=== PATIENT | female | born 1985 | race Caucasian/White ===

== ENCOUNTER 2022-03-26 13:55 | Outpatient (CLI) | payer OTHER, SELFPAY ==
[2022-03-26 21:39] LABS: Chloride* 103 mmol/L (96-114); Potassium* 4.1 mmol/L (3.6-5.1); Sodium* 138 mmol/L (135-149)
[2022-03-26 21:42] LABS: Blood Urea Nitrogen* 12 mg/dL (5-24); Carbon Dioxide* 25 mmol/L (20-32); Cholesterol* 141 mg/dL (90-199); Creatinine* 0.6 mg/dL (0.5-1.5); Estimated Glomerular Filt Rate 119 ml/min; Glucose* 113 mg/dL (60-115)
[2022-03-26 21:43] LABS: Calcium* 8.6 mg/dL (8.4-10.6); HDL Cholesterol* 45 mg/dL (>=50); LDL Cholesterol Calculated 70 mg/dL (<100); Triglycerides* 128 mg/dL (40-149)
== END 2022-03-26 13:56 | disposition home or self-care (01) ==
PROVIDERS: PCP Physician Assistant Medical; Visit Provider Emergency Medicine
DX: E66.9 Obesity, unspecified (principal); F41.9 Anxiety disorder, unspecified; Z68.38 Body mass index [BMI] 38.0-38.9, adult; Z13.6 Encounter for screening for cardiovascular disorders
CPT/HCPCS: 80048; 80061; 84443

== ENCOUNTER 2024-02-16 14:54 | Outpatient (CLI) | payer OTHER, SELFPAY | END 2024-02-16 14:55 | disposition home or self-care (01) | LOC: NFLDREF 02-21 16:16 | PROVIDERS: PCP Physician Assistant Medical; Referring Provider Physician Assistant Medical; Visit Provider Physician Assistant Medical | DX: R79.89 Other specified abnormal findings of blood chemistry (principal); R79.0 Abnormal level of blood mineral | CPT/HCPCS: 82306; 82607; 82728; 84443 ==

== ENCOUNTER 2024-03-22 11:09 | Outpatient (CLI) | payer OTHER, SELFPAY ==
--- OUTSIDE RECORDS SUMMARY | 2024-03-22 11:11 | XMS_ITS | Encounter Summary ---
Author Organization [place] Address [address] [place] [address] Care Team Providers Care Veneer Press Operator Name Role Phone Ivory Varela MD Primary Care Provide r Ivory Varela MD Unavailable Ivory Varela MD Unavailable [phone] Kisha Gustafson PA-C Primary Care Provi nelly Kisha Gustafson PA-C Unavailable [phone] Hanna Stone Ra, APRN IN HOME SALES CONSULTANT Unavailable + [phone] Brock Segovia DPM Unavailable [phone] Hanna Stone Ra, APRN IN HOME SALES CONSULTANT Primary Care Provid er Hanna Stone Ra, APRN IN HOME SALES CONSULTANT Unavailable + [phone] Reason for Visit * Reason Onset Date Comments Patient Request 12/22/2017 Encounter Details Date Type Department Care Team (Late st Contact Info) Description 12/22/2017 Telephone [facility] [address] [place] [address] Eddie Larsen MD [facility] [address] [place], [place] [id number] Patient Request Social History Tobacco Use Types Packs/Day Years Used Date Smoking Tobacco: Former Cigarettes Q uit: 05/26/2010 Smokeless Tobacco: Never Alcohol Use Standard Drinks/Week Comments Yes 0 (1 standard drink = 0.6 oz pur e alcohol) occassionally Comments No Sex and Gender Information Value Date Recorded Sex Assigned at Not on file Legal Sex Female 5:08 AM MILK INSPECTOR Gender Identity Not on file Sexual Orientation Not on file documented as of this encounter Patient Instructions * Patient Instructions* Page Mireles RN - 12/22/2017 3:39 PM CDT Patient Instructions Pre-Operative: -Surgery scheduled at [facility] for L4-5 Microdiscectomy-Surgical risks: blood clotsin the leg or lung, problems urinating, nerve damage, drainage from the incision, infection,stiffness - Pre-operative physical with primary care physician within 30 days of surgical date. - Likely same day procedure with discharge home day of surgery, may stay for 23 hour observation hospitalization for monitoring. -Shower procedure: please shower with antimicrobial soap the night before surgery and morning of surgery. Please refer to showering instruction sheet in folder. -Stop all solid foods 8 hours before surgery. -Keep drinking clear liquids until 4 hours before surgery. Clear liquids include water, clear juice, black coffee, or clear tea without milk, Gatorade, clear soda. - Discontinue Aspirin, NSAIDs (Advil/Ibuprofen, Naproxen,Nuprin,Relafen/Nabumetone, Diclofenac,Meloxicam, Aleve, Celebrex) x 7 days prior to surgical date. -- May try tylenol for pain 1000 mg three times per day for pain Post-Operative: -you may resume taking NSAIDs 7 days post op - Post operative incisional pain x 1-2 weeks which will require pain medications and muscle relaxants. You will receive medication upon discharge. -Do NOT drive while taking narcotic pain medication. -Do not drink alcohol while using any pain medication -Post operative incision care- Watch for signs of infection: redness, swelling, warmth, drainage, and fever of 101 degrees or higher. Notify clinic [phone]. -No submerging incision in water such as pools, hot tubs,baths for at least 8 weeks or until incision is healed. Showers are fine. - Post operative activity limitations: 6-8 weeks, no lifting > 10 pounds, no bending, twisting, or overhead reaching. - Post op follow up appointments:6 week post op follow up visit with Nurse practitioner.Please callto schedule follow up appointment at [phone]. -If you are currently employed, you will need to be off work for 2-4 weeks for post op recovery andhealing. documented in this encounter Miscellaneous Notes * Telephone Encounter - Page Mireles RN - 12/22/2017 3:22 PM CDT Returned call to patient and went over her pre-op education below. Faxed information to patient @ [email or web address] Pre-operative Education Education included but not limited to: - Pre-operative physical with primary care physician within 30 days of surgical date. - Pre-operative clearance (cardiology, hematology, etc). - Discontinue Aspirin, NSAIDs, Diclofenac x 7 days prior to surgical date. -May try tylenol for pain 1000 mg three times per day for pain -you may resume taking NSAIDs 7 days post op after Laminectomy, microdiscectomy -Patient is not a smoker -Forms to be completed -Surgical risks: blood clots in the leg or lung, problems urinating, nerve damage, drainage from the incision, infection,stiffness -Preparation timeline - When to start NPO -Special bathing procedure.Patient received Hibiclens and showering instruction sheet. - Managing pain - Likely same day procedure with discharge home day of surgery, may stay for 23 hour observation hospitalization for monitoring - Post operative incisional pain x 1-2 weeks which will require pain medications and muscle relaxants. -Do NOT drive or drink alcohol while taking narcotic pain medication. -Post operative incision care-Keep your incision clean and dry at all times. OK to remove dressing on postop day 2. OK to shower on postop day 3 and allow water to run over incision, pat dry after shower. No bathing, swimming or submerging in water. Call immediately or come to ED if any drainage occurs, or you develop new pain. Watch for signs of infection: redness, swelling, warmth, drainage, and fever of 101 degrees or higher. Notify clinic. - Post operative activity limitations: 6-8 weeks, no lifting > 10 pounds, no bending, twisting, or overhead reaching. - Post op follow up appointments: 6 weeks and 3 months with Nurse Practitioner. Please call to schedule follow up appointment at [phone]. - Microdiscectomy Education book was also given to the patient for further review. Patient verbalized understanding of above instructions. All questions were answered to the best of my ability and the patient's satisfaction. Patient advised to call with any additional questions or concerns. Page Mireles RN * Telephone Encounter - Rachel Barnes - 12/22/2017 1:42 PM CDT REASON FOR CALL: Pt left vm stating she has questions about her upcoming surgery and would like a call back. Did not state what the questions were. Detailed message can be left: YES documented in this encounter Plan of Treatment Not on file documented as of this encounter Visit Diagnoses Not on filedocumented in this encounter Care Teams Veneer Press Operator Relationship Specialty Start Date End Date Ivory Varela MD PCP - General Pediatrics 11/02/09 05/24/19 Ivory Varela MD [address] [place] [address] PCP - Assigned PCP 07/08/16 07/28/18 Kisha Gustafson PA-C [address] [place] [address] PCP - General Physician Beach Patrol Lieutenant 05/25/19 09/20/20 Hanna Stone Ra, CONVENTION PLANNER IN HOME SALES CONSULTANT [address] [place] [address] PCP - General Family Practice 09/21/20 Ivory Varela MD [address] [place] [address] Assigned PCP 07/08/16 05/29/19 Kisha Gustafson PA-C [address] [place] [address] Assigned PCP 05/30/19 12/04/19 Hanna Stone Ra, APRN IN HOME SALES CONSULTANT [address] [place] [address] Assigned PCP 12/05/19 05/10/22 Brock Segovia DPM [address] [facility] [address] [place] [address] Assigned Musculoskeletal Provider 03/17/20 09/02/20 Hanna Stone Ra, APRN IN HOME SALES CONSULTANT [address] [place] [address] Assigned PCP 07/20/22 11/15/22 documented as of this encounter
--- OUTSIDE RECORDS SUMMARY | 2024-03-22 11:11 | XMS_ITS | Clinical Summary ---
Author Organization [place] Address [address] [place] [address] Care Team Providers Care Carbide Tool Die Maker Name Role Phone BerthaHanna cornejo Ra CHRISTOPHER BOX TOE STITCHER Primary Care Provid er Allergies Active Allergy Reactions Criticality Noted Date Comments Seasonal Allergies 04/21/2013 Medications ibuprofen (ADVIL/MOTRIN) 800 MG tabletIndicatio ns:Hip pain, left Take 1 tablet (800 mg) by mouth every 8 hours as needed for moderate pain 90 tablet 1 09/05/2017 Active escitalopram (LEXAPRO) 20 MG tabletIndicatio ns:Anxiety Take 1 tablet (20 mg) by mouth daily 30 tablet 2 11/02/2019 Active albuterol (PROAIR HFA/PROVENTIL HFA/VENTOLIN HFA) 108 (90 Base) MCG/ACT inhalerIndicati ons:Exercise-in duced asthma Inhale 2 puffs into the lungs every 6 hours 1 Inhaler 11/02/2019 Active oxyCODONE (ROXICODONE) 5 MG tablet Take 1 tablet (5 mg) by mouth every 6 hours as needed for severe pain 12 tablet 09/03/2023 Active Active Problems Problem Noted Date Diagnosed Date Mechanical low back pain 09/12/2017 Class 1 obesity due to exces s calories without serious comorbidity with body mass index (BMI) of 30.0 to 30.9 in adult 07/10/2017 Family history of diabetes mellitus 11/21/2015 S/P 05/03/2013 Anxiety 11/13/2011 CARDIOVASCULAR SCREENING; LDL GOAL LESS THAN 160 03/25/2010 Abnormal Pap smear of cervix 11/02/2009 Overview (11/02/2009): + HPV, had coloposcopy. Resolved Problems Problem Noted Date Diagnosed Date Resolved Date Cervical pain 04/25/2011 06/13/2011 Lumbar radiculopathy 04/25/2011 012 Immunizations Name Administration Dates Next Due COVID-19 Monovalent 18+ (Moderna) 09/07/2020, Influenza (IIV3) PF 02/25/2013,04/10/2011 Influenza Vaccine >6 months,quad, PF 04/2020,03/28/2019,02/28/2018, 016 Influenza, seasonal, injectable, PF 03/11/2017,0 02/15/2015 TDAP Vaccine (Adacel) 03/09/2013,12/21/2010 Family History Medical History Relation Comments No Known Problems Daughter 1 No Known Problems Daughter 2 Alcohol/Drug Father Diabetes Father Blood Disease Maternal Grandfather hemachromat osis dec 60's Depression Maternal Grandmother Lipids Maternal Grandmother Psychotic Disorder Mother anxiety C.A.D. Paternal Grandfather dec [place] latoya y 60's No Known Problems Paternal Grandmother No Known Problems Sister Relation Status Comments Daughter 1 Alive Daughter 2 Alive Father Alive Maternal Grandfather Maternal Grandmother Alive Mother Alive Paternal Grandfather Paternal Grandmother Alive Sister Alive Social History Tobacco Use Types Packs/Day Years Used Date Smoking Tobacco: Former Cigarettes Q uit: 05/26/2010 Smokeless Tobacco: Never Tobacco Cessation:Counseling Given: No Alcohol Use Standard Drinks/Week Comments Yes 0 (1 standard drink = 0.6 oz pur e alcohol) occassionally PHQ-2 Answer Date Recorded PHQ-2 Score 0 07/05/2019 Adolescent Education Answer Date Record ed Getting School Help Needed Not on file 03/12 Comments No Sex and Gender Information Value Date Recorded Sex Assigned at Not on file Legal Sex Female 5:08 AM INTERNATIONAL STUDENT COUNSELOR Gender Identity Not on file Sexual Orientation Not on file Last Filed Vital Signs Vital Sign Reading Time Taken Comments Blood Pressure 149/96 09/02/2023 8:30 PM CDT Pulse 93 09/02/2023 8:30 PM CDT Temperature 36.7 ??C (98.1 ??F) 09/02/2023 8:30 PM CD T Respiratory Rate 19 09/02/2023 8:30 PM CDT Oxygen Saturation 99% 09/02/2023 8:30 PM CDT Inhaled Oxygen Concentration - - Weight 90.9 kg (200 lb 8 oz) 05/25/2019 9:28 AM INTERNATIONAL STUDENT COUNSELOR Height 165.1 cm (5' 5) 05/25/2019 9:28 AM INTERNATIONAL STUDENT COUNSELOR Body Mass Index 33.36 05/25/2019 9:28 AM INTERNATIONAL STUDENT COUNSELOR Plan of Treatment Health Maintenance Due Date Last Done Comments ANNUAL REVIEW OF HM ORDERS 1985 URINE DRUG SCREEN 1985 HEPATITIS C SCREENING 2003 HEPATITIS B IMMUNIZATION (1 of 3 - 19+ 3-dose series) 2004 JACK ASSESSMENT 05/03/2020 11/02/2019, 07/24, 07/05/2019, Additional history exists GLUCOSE 07/10/2020 07/10/2017, 11/02/2009 HPV TEST 05/26/2021 02/13/2016 PAP 05/26/2021 05/26/2016, 01/25, 02/13/2016, Additional history exists ADVANCE CARE PLANNING 01/08/2023 01/08/2018 DTAP/TDAP/TD IMMUNIZATION (3 - Td or Tdap) 03/09/2023 03/09/2013, 12/21/2010 PHQ-2 (once per calendar year) 2023 08/04/2019, 07/05/2019, 07/05/2019, Additional history exists COVID-19 Vaccine ( season) 2024 04/20/2021, 09/07/2020, 08/10/2020 INFLUENZA VACCINE (#1) 2024 , 02/05/2020, 03/28/2019, Additional history exists YEARLY PREVENTIVE VISIT 04/16/2024 04/16/20 23, 10/19/2021, 03/29/2020, Additional history exists RSV VACCINE (1 - 1-dose 75+ series) 2060 HIV SCREENING Completed 10/20/2012 HPV IMMUNIZATION Aged Out No longer e ligible based on patient's age to complete this topic MENINGITIS IMMUNIZATION Aged Out No l onger eligible based on patient's age to complete this topic Pneumococcal Vaccine: Pediatrics (0 to 5 Years) and At-Risk Patients (6 to 64 Years) Aged Out No longer eligible based on patient's age to complete this topic RSV MONOCLONAL ANTIBODY Aged Out No l onger eligible based on patient's age to complete this topic Procedures Procedure Name Priority Date/Time Associated Diagnosis Comments COMPREHENSIVE METABOLIC PANEL Routine 07/10/2017 10:14 AM INTERNATIONAL STUDENT COUNSELOR CARDIOVASCULAR SCREENING; LDL GOAL LESS THAN 160 PAP SMEAR - [facility] PATIENT REPORTED Routine 05/26/2016 ABSTRACT HPV ([facility] EXTERNAL RESULT) Routine 02/13/2016 HIV 1 AND 2 ANTIBODY ([facility]) Routine 10/20/2012 from Last 3 Months or Most Recently Relevant to Health Maintenance Results * Comprehensive metabolic panel (07/10/2017 10:14 AM INTERNATIONAL STUDENT COUNSELOR) Sodium 138 133 - 144 mmol/L 07/10/2017 2:07 PM [facility] Potassium 4.1 3.4 - 5.3 mmol/L 07/10/2017 2:07 PM [facility] Chloride 106 94 - 109 mmol/L 07/10/2017 2:07 PM [facility] Carbon Dioxide 27 20 - 32 mmol/L 07/10/2017 2:07 PM [facility] Anion Gap 5 3 - 14 mmol/L 07/10/2017 2:07 PM [facility] Glucose 87 70 - 99 mg/dL 07/10/2017 2:07 PM [facility] Comment:Fasting specimen Urea Nitrogen 16 7 - 30 mg/dL 07/10/2017 2:07 PM [facility] Creatinine 0.58 0.52 - 1.04 mg/dL 07/10/2017 2:07 PM [facility] GFR Estimate >90 >60 mL/min/1.7 m2 07/10/2017 2:07 PM [facility] Comment:Non GFR Calc GFR Estimate If Black >90 >60 mL/min/1.7 m2 07/10/2017 2:07 PM [facility] Comment: GFR Calc Calcium 8.7 8.5 - 10.1 mg/dL 07/10/2017 2:07 PM [facility] Bilirubin Total 0.3 0.2 - 1.3 mg/dL 07/10/2017 2:07 PM [facility] Albumin 3.7 3.4 - 5.0 g/dL 07/10/2017 2:07 PM [facility] Protein Total 7.3 6.8 - 8.8 g/dL 07/10/2017 2:07 PM [facility] Alkaline Phosphatase 56 40 - 150 U/L 07/10/2017 2:07 PM [facility] ALT 17 0 - 50 U/L 07/10/2017 2:07 PM [facility] AST 9 0 - 45 U/L 07/10/2017 2:07 PM [facility] Blood specimen (specimen) 07/10/2017 10:14 AM INTERNATIONAL STUDENT COUNSELOR 07/10/2017 10:15 AM INTERNATIONAL STUDENT COUNSELOR Ivory Varela MD LAB - BLOOD ORDERABLE S Final Result [facility] [address] [place] [address] * PAP Smear - HIM Patient Reported (05/26/2016) PAP Smear - HIM Patient Reported Negative EXTERNAL LAB 05/26/2016 Narrative EXTERNAL LAB - 05/26/2016 ??Pt had pap done x1 year ago at [facility] and was negative. (2017) us Patient Reported LABORATORY Final Result EXTERNAL LAB External Lab * ABSTRACT HPV-NO CHARGE (02/13/2016) HPV Abstract See Scanned Document [facility] 02/13/2016 Narrative [facility] - 02/13/2016 PAP SMEAR APOLINAR MOREIRA Lab Result us Provider Outside LAB - HIM EXTERNAL RESULT Final Result [facility] [address] [facility] [place] [address], [facility] [phone] * HIV 1 and 2 Antibody (10/20/2012) HIV-1 & HIV-2 Antibody HIV 1&2 Antibody negative Blood specimen (specimen) us Patient Reported LAB - BLOOD ORDERABLES Final Re sult from Last 3 Months or Most Recently Relevant to Health Maintenance Insurance [employer] Advance Directives For more information, please contact: [phone] Documents on File Type Date Recorded Patient Mental Health Unit Lead Psychologist Expl anation Advance Directives and Living Will 12/30/2017 10:38 AM Health Care Directiv e 12/08/2017 Healthcare Agents on File Name Relationship Healthcare Agent [facility] Communication Jose Manuel Deo Spouse Health Care Agent Paige Cole Sister First Alternate Health Care Agent Care Teams Carbide Tool Die Maker Relationship Specialty Start Date End Date Hanna Stone Ra, COMMERCIAL FINANCE MANAGER BOX TOE STITCHER [address] [address] PCP - General Family Practice 09/21/20
--- OUTSIDE RECORDS SUMMARY | 2024-03-22 11:11 | XMS_ITS | Encounter Summary ---
Author Organization [place] Address [address] [place] [address] Care Team Providers Care Yardage Caller Name Role Phone Kisha Gustafson PA-C Primary Care Provi nelly Hanna Stone Ra, APRN THERMIT WELDING MACHINE OPERATOR Unavailable + [phone] Brock Segovia DPM Unavailable [phone] Hanna Stone Ra, APRN THERMIT WELDING MACHINE OPERATOR Primary Care Provid er Hanna Stone Ra, APRN THERMIT WELDING MACHINE OPERATOR Unavailable + [phone] Encounter Details Date Type Department Care Team (Late st Contact Info) Description 02/22/2020 [facility] Medical Advice [address] [id number] Chary Perez Social History Tobacco Use Types Packs/Day Years Used Date Smoking Tobacco: Former Cigarettes Q uit: 05/26/2010 Smokeless Tobacco: Never Alcohol Use Standard Drinks/Week Comments Yes 0 (1 standard drink = 0.6 oz pur e alcohol) occassionally PHQ-2 Answer Date Recorded PHQ-2 Score 0 07/05/2019 Comments No Sex and Gender Information Value Date Recorded Sex Assigned at Not on file Legal Sex Female 5:08 AM VACUUM CLEANER REPAIR PERSON Gender Identity Not on file Sexual Orientation Not on file documented as of this encounter Plan of Treatment Not on file documented as of this encounter Visit Diagnoses Not on filedocumented in this encounter Additional Health Concerns Assessment Noted Time PHQ-9 Depression Total Score: 5 08/05/19 20 7:04 AM CDT documented as of this encounter Care Teams Yardage Caller Relationship Specialty Start Date End Date Kisha Gustafson PA-C PCP - General Physician Progress Developer 05/25/19 09/20/20 Hanna Stone Ra, APRN THERMIT WELDING MACHINE OPERATOR [address] [address] PCP - General Family Practice 09/21/20 Hanna Stone Ra, APRN THERMIT WELDING MACHINE OPERATOR [address] [address] Assigned PCP 12/05/19 05/10/22 Brock Segovia DPM [address] [facility] [address] [place] [address] Assigned Musculoskeletal Provider 03/17/20 09/02/20 Hanna Stone Ra, APRN CNP [address] [address] Assigned PCP 07/20/22 11/15/22 documented as of this encounter
--- OUTSIDE RECORDS SUMMARY | 2024-03-22 11:11 | XMS_ITS | Encounter Summary ---
Author Organization [place] Address [address] [place] [address] Care Team Providers Care Air Conditioning Installer Supervisor Name Role Phone Hanna Stone Ra, APRN SCRAP YARD WORKER Unavailable + [phone] Hanna Stone Ra, APRN SCRAP YARD WORKER Primary Care Provid er Hanna Stone Ra PRESCHOOL HEAD TEACHER SCRAP YARD WORKER Unavailable + [phone] Encounter Details Date Type Department Care Team (Late st Contact Info) Description 09/29/2020 [facility] [place] [address] [phone] Paige Perales, HAND ALTERATIONS TAILOR Social History Tobacco Use Types Packs/Day Years [...] on file Legal Sex Female 5:08 AM PACKAGING CLERK Gender Identity Not on file Sexual Orientation Not on file documented as of this encounter Plan of Treatment Not on file documented as of this encounter Visit Diagnoses Not on filedocumented in this encounter Additional Health Concerns Assessment Noted Time PHQ-9 Depression Total Score: 5 08/05/19 20 7:04 AM CDT documented as of this encounter Care Teams Air Conditioning Installer Supervisor Relationship Specialty Start Date End Date Hanna Stone Ra, APRN SCRAP YARD WORKER [address] [address] [address] PCP - General Family Practice 09/21/20 Hanna Stone Ra, APRN SCRAP YARD WORKER [address] [address] [address] Assigned PCP 12/05/19 05/10/22 Hanna Stone Ra, APRN SCRAP YARD WORKER [address] [address] [address] Assigned PCP 07/20/22 11/15/22 documented as of this encounter
--- OUTSIDE RECORDS SUMMARY | 2024-03-22 11:11 | XMS_ITS | Referral Summary ---
Author Organization [place] Address [address] [place] [address] Care Team Providers Care Roll Tester Name Role Phone BerthaHanna cornejo Ra CHRISTOPHER CARTON FORMING MACHINE HELPER Primary Care Provid er Allergies Active Allergy [...] PF 03/11/2017,0 02/15/2015 TDAP Vaccine (Adacel) 03/09/2013,12/21/2010 Social History Tobacco Use Types Packs/Day Years [...] on file Legal Sex Female 5:08 AM PHARMACY MANAGER Gender Identity Not on file Sexual Orientation [...] (200 lb 8 oz) 05/25/2019 9:28 AM PHARMACY MANAGER Height 165.1 cm (5' 5) 05/25/2019 9:28 AM PHARMACY MANAGER Body Mass Index 33.36 05/25/2019 9:28 AM PHARMACY MANAGER Plan of Treatment Not on file Procedures Procedure Name Priority Date/Time Associated Diagnosis Comments COMPREHENSIVE METABOLIC PANEL Routine 07/10/2017 10:14 AM PHARMACY MANAGER CARDIOVASCULAR SCREENING; LDL GOAL LESS THAN 160 PAP SMEAR - HIM PATIENT REPORTED Routine 05/26/2016 ABSTRACT HPV (HIM EXTERNAL RESULT) Routine 02/13/2016 HIV 1 AND 2 ANTIBODY (QUEST) Routine 10/20/2012 from Last 3 Months or Most Recently Relevant to Health Maintenance Results * Comprehensive metabolic panel (07/10/2017 10:14 AM [facility]) Sodium 138 133 - 144 mmol/L 07/10/2017 2:07 PM [facility] Potassium 4.1 3.4 - 5.3 mmol/L 07/10/2017 2:07 PM [facility] Chloride 106 94 - 109 mmol/L 07/10/2017 2:07 PM [facility] Carbon Dioxide 27 20 - 32 mmol/L 07/10/2017 2:07 PM [facility] Anion Gap 5 3 - 14 mmol/L 07/10/2017 2:07 PM [facility] Glucose 87 70 - 99 mg/dL 07/10/2017 2:07 PM [facility] Comment:Fasting specimen Urea Nitrogen 16 7 - 30 mg/dL 07/10/2017 2:07 PM [facility] Creatinine 0.58 0.52 - 1.04 mg/dL 07/10/2017 2:07 PM [facility] GFR Estimate >90 >60 mL/min/1.7 m2 07/10/2017 2:07 PM [facility] Comment:Non GFR Calc GFR Estimate If Black >90 >60 mL/min/1.7 m2 07/10/2017 2:07 PM [facility] Comment: GFR Calc Calcium 8.7 8.5 - 10.1 mg/dL 07/10/2017 2:07 PM PHARMACY MANAGER [facility] Bilirubin Total 0.3 0.2 - 1.3 mg/dL 07/10/2017 2:07 PM PHARMACY MANAGER [facility] Albumin 3.7 3.4 - 5.0 g/dL 07/10/2017 2:07 PM PHARMACY MANAGER [facility] Protein Total 7.3 6.8 - 8.8 g/dL 07/10/2017 2:07 PM PHARMACY MANAGER [facility] Alkaline Phosphatase 56 40 - 150 U/L 07/10/2017 2:07 PM PHARMACY MANAGER [facility] ALT 17 0 - 50 U/L 07/10/2017 2:07 PM PHARMACY MANAGER [facility] AST 9 0 - 45 U/L 07/10/2017 2:07 PM PHARMACY MANAGER [facility] Blood specimen (specimen) 07/10/2017 10:14 AM PHARMACY MANAGER 07/10/2017 10:15 AM PHARMACY MANAGER us Ivory Varela MD LAB - BLOOD ORDERABLE S Final Result [facility] [address] [place] [address] * PAP Smear - HIM Patient Reported (05/26/2016) PAP Smear - HIM Patient Reported Negative EXTERNAL LAB 05/26/2016 Narrative EXTERNAL LAB - 05/26/2016 ??Pt had pap done x1 year ago at [facility] and was negative. (2017) us Patient Reported LABORATORY Final Result EXTERNAL LAB External Lab * ABSTRACT HPV-NO CHARGE (02/13/2016) HPV Abstract See Scanned Document [facility] 02/13/2016 Narrative [facility] - 02/13/2016 PAP SMEAR [facility] Lab Result us Provider Outside LAB - HIM EXTERNAL RESULT Final Result [facility] [address] [facility] [place] [id number], [facility] [phone] * HIV 1 and 2 Antibody (10/20/2012) HIV-1 & HIV-2 Antibody HIV 1&2 Antibody negative Blood specimen (specimen) us Patient Reported LAB - BLOOD ORDERABLES Final Re sult from Last 3 Months or Most Recently Relevant to Health Maintenance Insurance [facility] Advance Directives For more information, please contact: [phone] Documents on File Type Date Recorded Patient Mounter Saxophones Expl anation Advance Directives and Living Will 12/30/2017 10:38 AM Health Care Directiv e 12/08/2017 Healthcare Agents on File Name Relationship Healthcare Agent Shunemily viviana Communication Jose Manuel Desouza Spouse Health Care Agent Paige Cole Sister First Alternate Health Care Agent Care Teams Roll Tester Relationship Specialty Start Date End Date Hanna Stone Ra, VOLLEYBALL COMMENTATOR CARTON FORMING MACHINE HELPER [address] [place] [address] PCP - General Family Practice 09/21/20
--- OUTSIDE RECORDS SUMMARY | 2024-03-22 11:11 | XMS_ITS | Encounter Summary ---
Author Organization [place] Address [address] [place] [address] Care Team Providers Care X Ray Developer Name Role Phone Kisha Gustafson PA-C Primary Care Provi nelly Kisha Gustafson PA-C Unavailable [phone] Hanna Stone Ra, APRN THROAT CUTTER Unavailable Brock Segovia DPM Unavailable [phone] Hanna Stone Ra, APRN THROAT CUTTER Primary Care Provid er Hanna Stone Ra, APRN THROAT CUTTER Unavailable + [phone] Reason for Visit * Reason Comments Medication Refill Encounter Details Date Type Department Care Team (Late st Contact Info) Description 11/17/[address] [address] Kisha Gustafson PA-C [address] [place], [place] [id number] Medication Refill Social History Tobacco Use Types Packs/Day Years [...] on file Legal Sex 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 No / Unsure 11/11/2019 10:39 AM CDT documented as of this encounter Plan of Treatment Not on file documented as of this encounter Visit Diagnoses Diagnosis Anxiety Anxiety state, unspecified documented in this encounter Additional Health Concerns Assessment Noted Time PHQ-9 Depression Total Score: 5 08/05/19 20 7:04 AM CDT documented as of this encounter Care Teams X Ray Developer Relationship Specialty Start Date End Date Kisha Gustafson PA-C PCP - General Physician Property Utilization Manager 05/25/19 09/20/20 Hanna Stone Ra, APRN THROAT CUTTER [address] [place] [address] PCP - General Family Practice 09/21/20 Kisha Gustafson PA-C [address] [facility] [address] [place] [address] Assigned PCP 05/30/19 12/04/19 Hanna Stone Ra, APRN THROAT CUTTER [address] [place] [address] Assigned PCP 12/05/19 05/10/22 Brock Segovia DPM [address] [facility] [address] [place] [address] Assigned Musculoskeletal Provider 03/17/20 09/02/20 Hanna Stone Ra, APRN THROAT CUTTER [address] [address] Assigned PCP 07/20/22 11/15/22 documented as of this encounter
--- OUTSIDE RECORDS SUMMARY | 2024-03-22 11:12 | XMS_ITS | Encounter Summary ---
Author Organization [place] Address [address] [place] [address] Care Team Providers Care Barge Captain Name Role Phone Ivory Varela MD Primary Care Provide r Ivory Varela MD Unavailable Ivory Varela MD Unavailable Kisha Gustafson PA-C Primary Care Provi nelly Kisha Gustafson PA-C Unavailable [phone] Hanna Stone Ra, APRN CHEMICAL PLANT OPERATOR Unavailable + [phone] Brock Segovia DPM Unavailable [phone] Hanna Stone Ra, APRN CHEMICAL PLANT OPERATOR Primary Care Provid er Hanna Stone Ra, APRN CHEMICAL PLANT OPERATOR Unavailable + [phone] Encounter Details Date Type Department Care Team (Late st Contact Info) Description 10/07/2017 [facility] Medical [facility] Services [facility] Care [place] [address] [facility] [address] [place] [address] Anabella Reid, RIKA [address] [place] [address] Social History Tobacco Use Types Packs/Day Years Used Date Smoking Tobacco: Former Cigarettes Q uit: 05/26/2010 Smokeless Tobacco: Never Alcohol Use Standard Drinks/Week Comments Yes 0 (1 standard drink = 0.6 oz pur e alcohol) occassionally Comments No Sex and Gender Information Value Date Recorded Sex Assigned at Not on file Legal Sex Female 5:08 AM THERAPY ASSISTANT Gender Identity Not on file Sexual Orientation Not on file documented as of this encounter Plan of Treatment Not on file documented as of this encounter Visit Diagnoses Not on filedocumented in this encounter Care Teams Barge Captain Relationship Specialty Start Date End Date Ivory Varela MD PCP - General Pediatrics 11/02/09 05/24/19 Ivory Varela MD [address] [place] [address] PCP - Assigned PCP 07/08/16 07/28/18 Kisha Gustafson PA-C [address] [place] [address] PCP - General Physician Freight [place] 05/25/19 09/20/20 Hanna Stone Ra, ERP IMPLEMENTATION CONSULTANT CHEMICAL PLANT OPERATOR [address] [place] [address] PCP - General Family Practice 09/21/20 Ivory Varela MD [address] [place] [address] Assigned PCP 07/08/16 05/29/19 Kisha Gustafson PA-C [address] [facility] [address] [place] [address] Assigned PCP 05/30/19 12/04/19 BerthaHanna cornejo Ra, APRN CHEMICAL PLANT OPERATOR [address] [address] [address] Assigned PCP 12/05/19 05/10/22 Brock Segovia DPM [address] [facility] [address] [place] [address] Assigned Musculoskeletal Provider 03/17/20 09/02/20 Hanna Stone Ra, APRN CHEMICAL PLANT OPERATOR [address] [address] [address] Assigned PCP 07/20/22 11/15/22 documented as of this encounter
--- OUTSIDE RECORDS SUMMARY | 2024-03-22 11:12 | XMS_ITS | Encounter Summary ---
Author Organization [place] Address [address] [place] [address] Care Team Providers Care Thermal Engineer Name Role Phone Ivory Varela MD Primary Care Provide r Ivory Varela MD Unavailable Ivory Varela MD Unavailable [phone] Kisha Gustafson PA-C Primary Care Provi nelly Kisha Gustafson PA-C Unavailable [phone] Hanna Stone Ra, APRN MANAGER RESEARCH AND DEVELOPMENT Unavailable + [phone] Brock Segovia DPM Unavailable [phone] Hanna Stone Ra, APRN MANAGER RESEARCH AND DEVELOPMENT Primary Care Provid er Hanna Stone Ra, APRN MANAGER RESEARCH AND DEVELOPMENT Unavailable + [phone] Encounter Details Date Type Department Care Team (Late st Contact Info) Description 12/28/2010 [facility] Medical Advice [address] [address] Shelby Johnson Social History Tobacco Use Types Packs/Day Years Used Date Smoking Tobacco: Never Smokeless Tobacco: Never Alcohol Use Standard Drinks/Week Comments Yes 0 (1 standard drink = 0.6 oz pur e alcohol) socially Comments No Sex and Gender Information Value Date Recorded Sex Assigned at Not on file Legal Sex Female 5:08 AM WATCH CRYSTAL CUTTER Gender Identity Not on file Sexual Orientation Not on file documented as of this encounter Plan of Treatment Not on file documented as of this encounter Visit Diagnoses Not on filedocumented in this encounter Care Teams Thermal Engineer Relationship Specialty Start Date End Date Ivory Varela MD PCP - General Pediatrics 11/02/09 05/24/19 Ivory Varela MD [address] [place] [address] PCP - Assigned PCP 07/08/16 07/28/18 Kisha Gustafson PA-C [address] [place] [address] PCP - General Physician [place] 05/25/19 09/20/20 Hanna Stone Ra, MOLDED PARTS INSPECTOR MANAGER RESEARCH AND DEVELOPMENT [address] [address] [address] PCP - General Family Practice 09/21/20 Ivory Varela MD [address] [place] [address] Assigned PCP 07/08/16 05/29/19 Kisha Gustafson PA-C [address] [facility] [address] [place] [address] Assigned PCP 05/30/19 12/04/19 Hanna Stone Ra, MOLDED PARTS INSPECTOR MANAGER RESEARCH AND DEVELOPMENT [address] [address] [address] Assigned PCP 12/05/19 05/10/22 Brock Segovia DPM [address] [facility] [address] [place] [address] Assigned Musculoskeletal Provider 03/17/20 09/02/20 Hanna Stone Ra, MOLDED PARTS INSPECTOR MANAGER RESEARCH AND DEVELOPMENT [address] [address] [address] Assigned PCP 07/20/22 11/15/22 documented as of this encounter
--- OUTSIDE RECORDS SUMMARY | 2024-03-22 11:12 | XMS_ITS | Encounter Summary ---
Author Organization [place] Address [address] [place] [address] Care Team Providers Care Planting Machine Operator Name Role Phone Ivory Varela MD Primary Care Provide r Ivory Varela MD Unavailable Ivory Varela MD Unavailable Kisha Gustafson PA-C Primary Care Provi nelly Kisha Gustafson PA-C Unavailable [phone] aHnna Stone Ra, APRN [employer] DISTRICT SUPERVISOR Unavailable + [phone] Brock Segovia DPM Unavailable [phone] Hanna Stone Ra, APRN [employer] DISTRICT SUPERVISOR Primary Care Provid er Hanna Stone Ra, APRN [employer] DISTRICT SUPERVISOR Unavailable + [phone] Reason for Visit * Reason Comments Ultrasound MONO/DI TWINS, FETUS A IUGR Encounter Details Date Type Department Care Team (Late st Contact Info) Description 04/12/2013 PRE VISIT [facility] [address] [facility] [address] [place] [address] Radha Paige, RN Ultrasound (MONO/DI TWINS, FETUS A IUGR) Social History Tobacco Use Types Packs/Day Years Used Date Smoking Tobacco: Former Cigarettes Q uit: 05/26/2010 Smokeless Tobacco: Never Alcohol Use Standard Drinks/Week Comments No 0 (1 standard drink = 0.6 oz pur e alcohol) Comments Yes Sex and Gender Information Value Date Recorded Sex Assigned at Not on file Legal Sex Female 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 SECURITY ARCHITECT Gender Identity Not on file Sexual Orientation Not on file documented as of this encounter Plan of Treatment Not on file documented as of this encounter Visit Diagnoses Not on filedocumented in this encounter Care Teams Planting Machine Operator Relationship Specialty Start Date End Date Ivory Varela MD PCP - General Pediatrics 11/02/09 05/24/19 Ivory Varela MD [address] [place] [address] PCP - Assigned PCP 07/08/16 07/28/18 Kisha Gustafson PA-C [address] [place] [address] PCP - General Physician Strategic Account Manager 05/25/19 09/20/20 Hanna Stone Ra, APRN [employer] DISTRICT SUPERVISOR [address] [place] [address] PCP - General Family Practice 09/21/20 Ivory Varela MD [address] [place] [address] Assigned PCP 07/08/16 05/29/19 Kisha Gustafson PA-C [address] [place] [address] Assigned PCP 05/30/19 12/04/19 Hanna Stone Ra, APRN [employer] DISTRICT SUPERVISOR [address] [address] [address] Assigned PCP 12/05/19 05/10/22 Brock Segovia DPM [address] [facility] [address] [place] [address] Assigned Musculoskeletal Provider 03/17/20 09/02/20 Hanna Stone Ra, ACTION INSTALLER [employer]ROLE[employer]ODU[employer] DISTRICT SUPERVISOR [address] [address] Assigned PCP 07/20/22 11/15/22 documented as of this encounter
--- OUTSIDE RECORDS SUMMARY | 2024-03-22 11:12 | XMS_ITS | Continuity of Care Document ---
Author Organization [facility] Address [address] [place] [address] Phone Care Team Providers Care Assistant Director Name Role Phone Unavailable Unavailable Unavailable Procedures Procedure Date Office/Outpatient Visit,New, [facility] 2019 Advance Directives Directive Yes / No Effective Date File Name No Information Encounters Encounter Description Practice Location Reason(s) For Visit Diagnoses Date Provider Providers Copied on Encounter Office/Outpat ient Visit,New, [facility], [address], [place], [place], [id number], [place] tel:[phone] [facility] Intervertebral disc disorders with radiculopathy, lumbar region 0 No Information Family History Family Member Type Diagnosis Age At Onset No Information Payers Payer name Insurance type Covered green party ID Jf winters(s) [facility] [id number] Out Of State [id number] Social History Type Description Quantity Date Captured Comments Alcohol Use Details Unknown Caffeine Use Details Unknown Tobacco Use Status Current non-smoker 20 Smoking Status Never smoker Non-Smoking Tobacco Use Details : No Details Available : No Details Available Sex Female Vital Signs Date / Time: Height Weight BMI Pulse Rate Blood Pressure Temperature Respiratory Rate Body Surface Area Head Circumference Head Circ. Percentile Wt./Francisco. Percentile BMI percentile Pulse Ox Inhaled Ox 9:41 AM 65.00 in 92.079 kg (203.00 lbs) 33.7 8 kg/m eter (2) 97.50 F Chief Complaint And Reason For Visit No Information Reason For Referral Reason For Referral No Information Plan Of Treatment Date Type Action Status Future Order: Radiology Order AP -Taw-Wkvg-Nwa Lum ([id number]), Ordered on: Ordered History Of Present Illness Encounter Date Complaint History Of Prese nt Illness No Information Functional Status Date Functional Assessmen t No Information Instructions Date Instruction Additional Infor mation No Information Assessments Type Assessment Date assessment Intervertebral disc disorders with radiculopathy, lumbar region Patient Care Teams Name Effective Dates (start - stop) Status Members No Information
--- OUTSIDE RECORDS SUMMARY | 2024-03-22 11:12 | XMS_ITS | Encounter Summary ---
Author Organization [place] Address [address] [place] [address] Care Team Providers Care Caustic Pump Operator Name Role Phone Ivory Varela MD Primary Care Provide r Ivory Varela MD Unavailable [phone] Ivory Varela MD Unavailable [phone] Kisha Gustafson PA-C Primary Care Provi nelly Kisha Gustafson PA-C Unavailable [phone] Hanna Stone Ra, APRN VISUAL SPECIALIST Unavailable + [phone] Brock Segovia DPM Unavailable [phone] Hanna Stone Ra, APRN VISUAL SPECIALIST Primary Care Provid er Hanna Stone Ra, APRN VISUAL SPECIALIST Unavailable + [phone] Reason for Referral * - Closed Specialty Diagnoses / Procedures Referred By Marlys nobles Referred To Contact Diagnoses Left lumbar radiculitis Eddie Larsen MD Phone: tel: fax: Referral ID Status Reason Start Date Expiration Date Visits Re quested Visits Authorized [id number] Closed 11/25/2017 11/25/2018 1 1 Comments Your provider has referred you to: [facility]: [facility] - Reason for Referral: Procedure Order Epidural: Lumbar (Advanced imaging required in the last 3 years) Lumbar, Left L4-5 TFESI What is your diagnosis for the patient's pain? Left lumbar radiculitis For any questions, contact the [facility] at . ANY DIAGNOSTIC TESTS THAT ARE NOT IN EPIC SHOULD BE SENT TO THE PAIN CENTER REGARDING OPIOID MEDICATIONS: The discussion of opioids management, appropriateness of therapy, and dosing will be discussed in patients being seen for evaluation. The pain management clinics are not long-term prescribing clinics, with transition of prescribing of medications ultimately going back to the referring provider/PCP. If prescribing is taken over at the pain clinic, it is in actively involved patients whom are appropriate for opioids, urine drug screening is completed, and long- term prescribing plan has been determined. Therefore, we will not be automatically taking over prescribing at the patient's first visit. Is this agreeable to you? agrees. Please be aware that coverage of these services is subject to the terms and limitations of your health insurance plan. Call member services at your health plan with any benefit or coverage questions. Please bring the following with you to your appointment: (1) Any X-Rays, CTs or MRIs which have been performed. Contact the facility where they were done to arrange for peanut picker prior to your scheduled appointment. (2) List of current medications (3) This referral request (4) Any documents/labs given to you for this referral Reason for Visit * Reason Onset Date Comments other 11/21/2017 Pain increasing Encounter Details Date Type Department Care Team (Late st Contact Info) Description 11/21/2017 Telephone [facility] [address] [place] [address] Eddie Larsen MD [facility] [address] [facility] [address] [place] [address] other (Pain increasing) Social History Tobacco Use Types Packs/Day Years Used Date Smoking Tobacco: Former Cigarettes Q uit: 05/26/2010 Smokeless Tobacco: Never Alcohol Use Standard Drinks/Week Comments Yes 0 (1 standard drink = 0.6 oz pur e alcohol) occassionally Comments No Sex and Gender Information Value Date Recorded Sex Assigned at Not on file 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 Order placed with [facility] management * Telephone Encounter - Page Mireles RN - 11/25/2017 12:42 PM CDT Spoke with patient had an injection on 10/22 and she states it helped with her symptoms for approximately 1 month but feels like it the last week her radicular symptoms and pain have started to return. She is scheduled for surgery on 12/[address] Larsen but is asking if she can get another injectionin the meantime. Informed her I would send a request to the care team for approval. * Telephone Encounter - Leslye Goddard - 11/25/2017 12:20 PM CDT REASON FOR CALL: Pt returned call (left message on clinic vm). Will wait for another call back to discuss injection. Detailed message can be left: YES * Telephone Encounter - Page Mireles RN - 11/24/2017 8:08 AM CDT LVM requesting a call back to discuss * Telephone Encounter - Leslye Goddard - 11/21/2017 4:09 PM CDT REASON FOR CALL: Pt states that her last injection in May helped her symptoms significantly but over time, pain is returning and becoming more difficult to manage. Pt is asking for a call back as soon as possible to discuss if another injection would be an option prior to her surgery; currently scheduled for 12/26/[address] Larsen. Detailed message can be left: YES documented in this encounter Plan of Treatment Scheduled Referrals Name Type Priority Associated Diagnoses Orde r Schedule PAIN MANAGEMENT REFERRAL Referral Routine Left lumbar radiculitis Ordered: 11/25/2017 documented as of this encounter Visit Diagnoses Diagnosis Left lumbar radiculitis- Primary Thoracic or lumbosacral neuritis or radiculitis, unspecified documented in this encounter Care Teams Caustic Pump Operator Relationship Specialty Start Date End Date Ivory Varela MD PCP - General Pediatrics 11/02/09 05/24/19 Ivory Varela MD [address] [place] [address] PCP - Assigned PCP 07/08/16 07/28/18 Kisha Gustafson PA-C [address] [place] [address] PCP - General Physician Prototype Special Build 05/25/19 09/20/20 Hanna Stone Ra, NCQA SPECIALIST VISUAL SPECIALIST [address] [place] [address] PCP - General Family Practice 09/21/20 Ivory Varela MD [address] [place] [address] Assigned PCP 07/08/16 05/29/19 Kisha Gustafson PA-C [address] [place] [address] Assigned PCP 05/30/19 12/04/19 Hanna Stone Ra, ACNDI VISUAL SPECIALIST [address] [address] [address] Assigned PCP 12/05/19 05/10/22 Brock Segovia DPM [address] [facility] [address] [place] [address] Assigned Musculoskeletal Provider 03/17/20 09/02/20 Hanna Stone Ra, NCQA SPECIALIST VISUAL SPECIALIST [address] [address] [address] Assigned PCP 07/20/22 11/15/22 documented as of this encounter
--- OUTSIDE RECORDS SUMMARY | 2024-03-22 11:12 | XMS_ITS | Encounter Summary ---
Author Organization [facility] Address [address] [place] [id number] Care Team Providers Care Signal Person Name Role Phone Ivory Varela MD Primary Care Provide r Ivory Varela MD Unavailable Ivory Varela MD Unavailable [phone] Kisha Gustafson PA-C Primary Care Provi nelly Kisha Gustafson PA-C Unavailable [phone] Hanna Stone Ra, APRN MEAT SOAKER Unavailable + [phone] Brock Segovia DPM Unavailable [phone] Hanna Stone Ra, APRN MEAT SOAKER Primary Care Provid er Hanna Stone Ra, APRN MEAT SOAKER Unavailable + [phone] Reason for Visit * Reason Onset Date Comments Outreach 10/11/2016 [facility] att 1 Outreach 12/06/2016 [facility] ATT 2 Encounter Details Date Type Department Care Team ([facility] st Contact Info) Description 10/11/2016 Telephone [facility] [address] [place] [address] Ivory Varela MD [address] [place] [address] Outreach ([facility] att 1); Outreach ([facility] ATT 2) Social History Tobacco Use Types Packs/Day Years Used Date Smoking Tobacco: Former Cigarettes Q uit: 05/26/2010 Smokeless Tobacco: Never Alcohol Use Standard Drinks/Week Comments No 0 (1 standard drink = 0.6 oz pur e alcohol) Comments No Sex and Gender Information Value Date Recorded Sex Assigned at Not on file Legal Sex Female 5:08 AM LYE PEEL OPERATOR Gender Identity Not on file Sexual Orientation Not on file documented as of this encounter Miscellaneous Notes * Telephone Encounter - Ron Navas - 12/06/2016 10:24 AM CDT 12/06/2016 Call Regarding Preventive Health Screening Cervical/PAP Attempt 2 Message on voicemail Comments: Outreach Computer Graphic Artist CC * Telephone Encounter - Maite Burt - 10/11/2016 3:16 PM CDT 10/11/2016 Call Regarding Preventive Health Screening Cervical/PAP Attempt 1 Message on voicemail Comments: Outreach Computer Graphic Artist JCC documented in this encounter Plan of Treatment Not on file documented as of this encounter Visit Diagnoses Not on filedocumented in this encounter Care Teams Signal Person Relationship Specialty Start Date End Date Ivory Varela MD PCP - General Pediatrics 11/02/09 05/24/19 Ivory Varela MD [address] [place] [address] PCP - Assigned PCP 07/08/16 07/28/18 Kisha Gustafson PA-C [address] [place] [address] PCP - General Physician Core Loader 05/25/19 09/20/20 Hanna Stone Ra, APRN MEAT SOAKER [id number] [address] [address] PCP - General Family Practice 09/21/20 Ivory Varela MD [address] [place] [address] Assigned PCP 07/08/16 05/29/19 Kisha Gustafson PA-C [address] [facility] [address] [place], [place] [id number] Assigned PCP 05/30/19 12/04/19 Hanna Stone Ra, APRN MEAT SOAKER [id number] [address] [id number] Assigned PCP 12/05/19 05/10/22 Brock Segovia DPM [id number] [facility] [address] [place] [address] Assigned Musculoskeletal Provider 03/17/20 09/02/20 Hanna Stone Ra, APRN MEAT SOAKER [id number] [address] [address] Assigned PCP 07/20/22 11/15/22 documented as of this encounter
--- OUTSIDE RECORDS SUMMARY | 2024-03-22 11:12 | XMS_ITS | Data Portability ---
Author Organization [facility], [id number] Address [address] [place] [address] [address] [place] [address] Assessment No assessment recorded. Plan of Treatment Reminders Order Date Submit Date Provider Last Modified By Organization Details Last Modified Time Details Appointments None recorded. Lab hemoglobin (Hb), fingerstic k, blood 2019 020 [email or web address] [id number] [facility] , [address] [place] [address], [address], [place], [address], 0 10:37:19 pap, LB + reflex HR HPV 2019 020 [facility], [address] [place], [address], 0 08:21:18 test, urine 2020 021 [email or web address] [email or web address] [facility], [address], [facility] [address], [place], [address], 1 17:39:36 HBsAg (hepatitis B surface Ag), EIA, serum 2021 022 [facility], [address], [place], [address], 2 09:46:31 hepatitis C Ab, signal-to- cutoff, serum or plasma 2021 022 [facility], [address], [place], [address], 09:46:30 CT + NG RNA, PCR, unspecifie d specimen 2021 [facility], [address], [place], [address], 2 09:46:29 RPR (rapid plasma reagin), serum 2021 [facility], [address], [place], [address], 09:46:30 cytology report, thin prep, smear or scraping, cervical or vaginal 2021 [facility], [address], [place], [address], 15:09:51 HIV 1 + 2, meaningful use set 2021 [facility], [address], [place], [address], 09:46:30 hemoglobin A1c, QN, blood 2022 023 [facility], [address] [facility], [id number], [place], [address], 3 19:42:15 Referral None recorded. Procedures None recorded. Surgeries None recorded. Imaging MAMMO, diagnostic , unilateral - PLease call pt to schedule a Bilateral Diagnostic mammogram and left breast ultrasound for left breast pain. Okay for any additional imaging/te sting as recommende d by [facility] t [facility] [facility], [address], [place], [address], 3 15:22:20 Medication Orders escitalopr am 20 mg tablet 2019 020 [facility] [address] [facility], [address], [place], [address], 0 10:37:24 doxycyclin e hyclate 100 mg tablet 2022 024 JUSTIN LAURENT [address] [facility], [address], [place], [address], 4 17:07:24 escitalopr am 20 mg tablet 2022 023 [facility] [address] [facility] [employer], [address], [place], [address], 3 12:59:16 escitalopr am 20 mg tablet 2023 024 JUSTIN LAURENT [address] [facility] [employer], [address], [place], [address], 4 17:59:22 Loestrin 1.5/30 (21) 1.5 mg-30 mcg tablet 2023 024 JUSTIN LAURENT [address] [facility] [employer], [address], [place], [address], 4 17:59:24 Patient TargetsNo targets recorded. Patient Instructions Encounter Date Encounter Id Patient Instructions Last Modified By Organization Details Last Modified Time 03/05/2021 [id number] -f/u in 1 year for annual exam or sooner with problems -steri strips to stay on for 7 days, bandage to stay on for 24 hours. No showers x 24 hours. -use condoms x 2 weeks after insertion if not switching from another hormonal method -call if having swelling, significant bruising, drainage, warmth around the incision site or fever -it is normal to have irregular periods with nexplanon. [email or web address] Not available 03/05/2021 16:02:38 Reason for Referral None Reported. Results Created Date Observation Date Name Description Value Unit Range Abnormal Flag Note LastModifiedBy Organization Detail LastModifiedTime 03/29/2020 hemog lobin (Hb), finge rstic k, blood fingerstick hemoglobin 13.5 g/dL 12.0-1 5.0 Not Available [id number] [email or web address] [address] [facility] [address], [place], [address], 03/29/2020 10:10:37 03/29/20 20 03/29/2020 pap, LB + refle x HR HPV case report See note CASE REPOR T ----- ----- ----- ----- ----- ----- ----- ----- Pap Smear Case: [id number] [employer] [facility] pace Provi nelly: Alan Uribe cted: 03/29 09:49 AM Order ing Locat ion: [facility] carol Faria Recei eliecer: 03/29 04:04 PM Hospi jaz Gener al Labor atory First Scree n: Senait Dumont Speckateryna men: Cervi nathan Thin Prep (HPV Refle x) Image r Scree n, Cervi x ===== ===== ===== ==== = INTER PRETA TION: = ===== ===== ===== ==== Negat jason for intra epith elial lesio n or melissa fang cells . Elect lalo velasco by Senait Dumont on 04/07 at 7:20 AM SPECI MEN ADEQU ACY ----- ----- ----- ----- ----- ----- ----- ----- Satis facto ry for evalu ation . Endoc neil pratt/escobar morrisonfo russell on zone compo nent prese nt. CLINI NATHAN INFOR MATIO N ----- ----- ----- ----- ----- ----- ----- ----- Regul ar LMP ----- ----- ----- ----- ----- ----- ----- ----- N/A PAP DISCL AIMER ----- ----- ----- ----- ----- ----- ----- ----- This speci men was scree luke by the ThinP rep Imagi ng Syste m prior to manua l revie w by a cytot echno logis t and/o r patho logis t. The Pap test is a scree mari test and has an irred ucibl e false -nega tive rate. Routi ne perio dic testi ng and follo w-up of unexp sushil d clini nathan signs and sympt oms are impor tant to minim ize the conse quenc e of false -nega tive Pap tests . Luz Marina velasco et al. 2012 Updat ed Conse nsus Guide lines for the Manag ement of Abnor mal Cervi nathan Cance r Scree mari Tests and Cance r Precu rsors . J Low Genit Tract Dis 2013; 17 (5): S2-S2 7 Not Available [facility] [address], [place], [address], 04/07/2020 08:21:18 03/05/20 21 03/05/2021 pregn devika test, urine Unknown Analyte negati ve Not Available [address] jeffery_[place] [address] [facility] [address], [place], [address], 03/05/2021 15:52:38 10/20/19 22 10/21/2021 CHLAM YDIA/ GC AMPLI FICAT ION chlamydia trachomatis, JARED Negati ve negati ve Not Available [facility] ([facility]) [address] [place], [address], 10/21/2021 09:46:29 10/20/19 22 10/21/2021 CHLAM YDIA/ GC AMPLI FICAT ION neisseria gonorrhoeae, JARED Negati ve negati ve Not Available [facility] ([facility]) [address] [place], [address], 10/21/2021 09:46:29 10/20/1910/20/2021 HIV AB/P2 4 AG WITH REFLE X HIV Ab/P24 Ag screen Non Reacti ve non reacti ve HIV Negat jason HIV-1 /HIV- 2 antib odies and HIV-1 p24 antig en were NOT detec arianne. There is no labor atory evide nce of HIV infec tion. Not Available [facility] ([facility]) [address] [facility], [place], [address], 10/21/2021 09:46:30 10/20/1910/20/2021 RPR, RFX QN RPR/C ONFIR M TP RPR Non Reacti ve non reacti ve Not Available [facility] ([facility]) [address] [facility], [place], [address], 10/21/2021 09:46:30 10/20/1910/20/2021 HCV ANTIB BEAN hep C virus Ab 0.2 s/co_ ratio 0.0-0. 9 Negat jason: < 0.8 Indet ermin ate: 0.8 - 0.9 Posit jason: > 0.9 HCV antib bean alone does not diffe renti ate betwe en previ ous resol eliecer infec tion and activ e infec tion. The CDC and curre nt clini nathan guide lines recom mend that a posit jason HCV antib bean resul t be follo wed up with an HCV RNA test to suppo rt the diagn osis of acute HCV infec tion. [facility] r[facility] offer s Hepat itis C Virus (HCV) RNA, Diagn osis, JARED (4927 46) and Hepat itis C Virus (HCV) Antib bean with refle x to Quant itati ve Real- time PCR (6699 50). Not Available [facility] ([facility]) [address] [facility], [place], [address], 10/21/2021 09:46:30 10/20/19 22 10/20/2021 HBSAG SCREE N HBsAg screen Negati ve negati ve Not Available [facility] ([facility]) [address] [facility], [place], [address], 10/21/2021 09:46:31 10/20/19 22 10/24/2021 IGP, APTIM A HPV, RFX 16/18 ,45 HPV aptima Negati ve negati ve This nucle ic acid ampli ficat ion test detec ts fourt een high- risk HPV types (16,1 8,31, 33,35 ,39,4 5,51, 52,56 ,58,5 9,66, 68) witho ut diffe renti ation . Not Available [facility] ([facility]) [address] [address], [place], [address], 10/25/2021 15:09:51 10/20/19 22 10/25/2021 IGP, APTIM A HPV, RFX 16/18 ,45 interpretati on NILM NEGAT JASON FOR INTRA EPITH ELIAL LESIO N OR MELISSA DESIREE . Not Available [facility] ([facility]) [address] [address], [place], [address], 10/25/2021 15:09:51 10/20/19 22 10/25/2021 IGP, APTIM A HPV, RFX 16/18 ,45 category: NIL Negat jason for Intra epith elial Lesio n Not Available [facility] ([facility]) [address] [address], [place], [address], 10/25/2021 15:09:51 10/20/19 22 10/25/2021 IGP, APTIM A HPV, RFX 16/18 ,45 adequacy: ENDO Satis facto ry for evalu ation . Endoc ervic al and/o r squam ous metap lasti c cells (endo cervi nahtan compo nent) are prese nt. Not Available [facility] ([facility]) [address] [address], [place], [address], 10/25/2021 15:09:51 10/20/19 22 10/25/2021 IGP, APTIM A HPV, RFX 16/18 ,45 clinician provided ICD10: Luis A nobles Z01.4 19 Not Available [facility] ([facility]) [address] [facility] [address], [place], [address], 10/25/2021 15:09:51 10/20/19 22 10/25/2021 IGP, APTIM A HPV, RFX 16/18 ,45 performed by: Evelia Rios am (ASCP ) Not Available [facility] ([facility]) [address] [facility] [address], [place], [address], 10/25/2021 15:09:51 10/20/19 22 10/25/2021 IGP, APTIM A HPV, RFX 16/18 ,45 note: Luis A nobles The Pap smear is a scree mari test desig luke to aid in the detec tion of sherita ligna nt and malig nant condi tions of the uteri ne cervi x. It is not a diagn ostic proce dure and shoul d not be used as the sole means of detec ting cervi nathan cance r. Both false -posi tive and false -nega tive repor ts do occur . Not Available [facility] ([facility]) [address] [facility] [address], [place], [address], 10/25/2021 15:09:51 10/20/19 22 10/25/2021 IGP, APTIM A HPV, RFX 16/18 ,45 test methodology: Luis A nobles This liqui d based ThinP rep(R ) pap test was scree luke with the use of an image guide rod steele Not Available [facility] ([facility]) [address] [facility] [address], [place], [address], 10/25/2021 15:09:51 04/24/20 23 04/24/2023 , breas t, unila teral No observ ation record ed. [email or web address] [place] [address] [facility], [place], [address], 04/24/2023 15:21:44 Result Notes None recorded. Problems No Known Problems Procedures Surgical History Date Name Laterality Status Provider Name and Address Organization Details Recorded Time 02/18/20 34 Date of Last Mammogram completed Dayan Taylor [place] - [facility] 02/25/2024 17:09:29 02/25/20 24 Nexplanon / Implanon Removal Procedure Note ([facility]) [place] [address] [address], [place], [address], [facility] - [facility] 02/26/2024 14:53:26 10/20/19 22 Date of Last Pap Smear completed Tracy Claire [place] - [facility] 10/26/2021 16:58:48 03/05/20 21 Nexplanon Insertion ([facility]) completed CHICO CARDENAS [address], [place], [address], [facility] - [facility] 03/05/2021 16:02:08 03/05/20 21 insertion of etonogestrel radiopaque contraceptive implant completed Gauri Harry [place] - [facility] 10/19/2021 08:34:37 section completed Not Available [facility] 01/03/2020 01:06:02 Removal of adenoids completed Not Available [facility] 01/03/2020 01:06:02 colposcopy of cervix completed Not Available [facility] 01/03/2020 01:06:02 rhinoplasty NEC completed Not Available [facility] 01/03/2020 01:06:02 Imaging Results Imaging Date Name Status LastModified by Organiz ation Details LastModified Time 04/24/2023 US, breast, unilateral completed [email or web address] [place] [address], [place], [address], 04/24/2023 15:21:44 Procedure Notes None recorded. Medical Equipment None Reported. Allergies No known drug allergies Medications Name Sig Start Date Stop Date Status Note LastModified by Organization Details LastModified Time ibuprofen 800 mg tablet TAKE 1 TABLET (800 MG) BY MOUTH EVERY 8 HOURS NEEDED FOR MODERATE PAIN OR MILD PAIN 02/24 completed Not Available Not Available Not Available amoxicillin 875 mg tablet 03/29 completed Not Available Not Available Not Available albuterol sulfate HFA 90 mcg/actuati on aerosol inhaler 03/29 completed Not Available Not Available Not Available doxycycline hyclate 100 mg tablet 02/24 completed Not Available Not Available Not Available phentermine 37.5 mg capsule 37.5 MG ORALLY EVERY DAY MUST ADMINISTE R 30 MINUTES BEFORE OR 1-2 HOURS AFTER BREAKFAST active Not Available Not Available No t Available Loestrin Fe 1.530 (28-Day) 1.5 mg-30 mcg (21)/75 mg (7) tablet Take 1 tablet every day by oral route. 03/05 completed Not Available Not Available Not Available oxycodone 5 mg tablet TAKE 1 TABLET (5 MG) BY MOUTH EVERY 6 HOURS NEEDED FOR SEVERE PAIN active Not Available Not Available No t Available escitalopra m 10 mg tablet 03/29 completed Not Available Not Available Not Available escitalopra m 20 mg tablet TAKE 1 TABLET BY MOUTH EVERY DAY active Not Available Not Available No t Available Junel 1.10/22 (21) 1.5 mg-30 mcg tablet TAKE 1 TABLET DAILY active Not Available Not Available No t Available iron 03/05 completed Not Available Not Available Not Available ibuprofen 02/24 completed Not Available Not Available Not Available 03/05 completed Not Available Not Available Not Available Nexplanon 2020 active Not Available Not Available Not Avai lable Fluzone Quad (PF) 60 mcg (15 mcg x 4)/0.5 mL IM syringe 03/29 completed Not Available Not Available Not Available Afluria Qd 2019- (36 mos up)(PF)60 mcg (15 mcg x4)/0.5 mL IM syringe 03/29 completed Not Available Not Available Not Available Vitals Date Recorded Body height Body mass index (BMI) Body weight Systolic blood pressure Diastolic blood pressure Provider Name and Address Organization Details Last Updated DateTime 03/05/2021 165.1 cm 34.7 kg/m2 40679.37 g 120 mm[Hg] 80 mm[Hg] Cynthia Canales TERMED [facility] 1 15:14:10 Date Recorded Body height Body mass index (BMI) Body weight Systolic blood pressure Diastolic blood pressure Provider Name and Address Organization Details Last Updated DateTime 10/19/2021 165.1 cm 36.2 kg/m2 51854.42 g 124 mm[Hg] 82 mm[Hg] Gauri Harry [facility] 2 17:12:01 Date Recorded Body weight Body mass index (BMI) Body height Systolic blood pressure Diastolic blood pressure Provider Name and Address Organization Details Last Updated DateTime 04/16/2023 802736.1 5 g 38.6 kg/m2 165.1 cm 118 mm[Hg] 80 mm[Hg] Dayan [facility]UC[facility]ESSION[facility] 3 12:48:34 Date Recorded Body height Body mass index (BMI) Body weight Systolic blood pressure Diastolic blood pressure Provider Name and Address Organization Details Last Updated DateTime 02/25/2024 165.1 cm 39.8 kg/m2 612271.5 8 g 120 mm[Hg] 84 mm[Hg] [facility]UCATION PAR[facility]ESSION[facility] 4 17:09:08 Date Recorded Body weight Body mass index (BMI) Body height Systolic blood pressure Diastolic blood pressure Provider Name and Address Organization Details Last Updated DateTime 03/29/2020 52646.66 g 33.6 kg/m2 165.1 cm 120 mm[Hg] 80 mm[Hg] Reshma Downey (TERMED) [facility] EDUCATION PARAPROFESSIONAL 0 10:10:10 Social History Question Answer Notes LastModified by Organizat ion Details LastModified Time Tobacco Smoking Status Former Smoker Former *Qty: 1 ppw Gauri marsh [facility]UC[facility]ESSION[facility] 10/19/2021 08:33:34 What Is Your Level Of Alcohol Consumption? Occasional 3dr/month Information not available 10/19/2021 What Is Your Level Of Caffeine Consumption? Moderate 2c/day Information not available 10/19/2021 Which Illicit Or Recreational Drugs Have You Used? Denies Illicit Substance Abuse Information not available 10/19/2021 Children's Names/ Denise, Melendrez Information not available 10/19/2021 History Of Domestic Violence No Denies All Domestic Violence Information not available 01/03/2020 Spouse/Partners Name Bebo Information not available 10/19/2021 What Is Your Relationship Status? Information not available 10/19/2021 Do You Use Any Illicit Or Recreational Drugs? No Information not available 10/19/2021 Sex: Unknown Functional Status Question Answer Note LastModified by Organizat ion Details LastModified Time What is your exercise level? Occasional Minimal Amount of Exercise (Once weekly or less) Information not available 01/03/2020 Mental Status None recorded. Family History Relationship Description Onset Age of this Age Resolved Age Notes LastModified by Organization Details LastModified Time Paternal Grandfather Hyperlipidem ia High Choles terol / Hyperl ipidem ia Not available 01/03/2020 01:08:34 Paternal Grandfather Family history of Cardiovascul ar disease Heart diseas e Not available 01/03/2020 01:08:34 Paternal Grandfather Old myocardial infarction Heart Attack Not available 01/03/2020 01:08:34 Paternal Grandfather Family history of diabetes mellitus Diabet es Not available 01/03/2020 01:08:34 Maternal Grandmother Family history of mental disorder Depres imelda Not available 01/03/2020 01:08:34 Medical History Condition Response Psych- Anxiety Disorder Y Psych- Depression Y Gynecological History Statement/Question Response History of Abnormal PAP Y HPV Test Negative Age at Menarche: 11 Date of Last Mammogram 02/17/2034 Date of LMP 02/18/2024 Current Control Method Nexplanon Date of Last Pap Smear 10/19/2021 Obstetrics History GPAL:G 2 P 0 1 1 2 Type Value Multiple Births 1 Full Term 0 Induced 0 Spontaneous 1 Premature 1 Living 2 Ectopics 0 Total 2 Immunizations Vaccine Type Date Status Provider Name and Address Organization Details Recorded Time Tdap 03/09/2013 completed Not Available [facility] 01:10:36 Influenza, split virus, trivalent, preservative 02/25/2013 completed Dayan Mohamed null, [place] - [facility] 04/16/2023 12:43:17 COVID-19, mRNA, LNP-S, PF, 100 mcg/0.5mL dose or 50 mcg/0.25mL dose 08/10/2020 completed Dayan Mohamed [place], [place] [facility] 04/16/2023 12:43:17 COVID-19, mRNA, LNP-S, PF, 100 mcg/0.5mL dose or 50 mcg/0.25mL dose 09/07/2020 completed Dayan Mohamed [place] [facility] 04/16/2023 12:43:17 COVID-19, mRNA, LNP-S, PF, 30 mcg/0.3 mL dose 04/20/2021 completed Dayan Moh[place] [facility] 04/16/2023 12:43:17 Tdap 12/21/2010 completed Dayan Moh[place] [facility] 04/16/2023 12:43:17 Influenza, split virus, trivalent, preservative 04/10/2011 completed Dayan Moh[place] [facility] 04/16/2023 12:43:17 Influenza, split virus, trivalent, PF 02/15/2015 completed Dayan [place] [facility] 04/16/2023 12:43:17 Influenza, split virus, trivalent, PF 03/11/2017 completed Dayan [place] [facility] 04/16/2023 12:43:17 Influenza, split virus, quadrivalent, PF 02/05/2020 completed Dayan [place] [facility] 04/16/2023 12:43:17 Influenza, split virus, quadrivalent, PF 02/28/2018 completed Day[place] [facility] 04/16/2023 12:43:17 Influenza, split virus, quadrivalent, PF 03/20/2016 completed Dayan [place] [facility] 04/16/2023 12:43:17 Influenza, split virus, quadrivalent, PF 03/28/2019 completed Dayan [place] [facility] 04/16/2023 12:43:17 Influenza, split virus, quadrivalent, PF 04/20/2021 completed Dayan marsh, [facility] 04/16/2023 12:43:17 Tdap 02/16/2024 completed Dayan marsh, [facility] [employer] [employer] 02/25/2024 17:05:10 Past Encounters Encounter ID Performer Location Encounter Start Date Encounter Closed Date Diagnosis/Indication Diagnosis SNOMED-CT Code Diagnosis ICD10 Code [id number] DARIO ALMENDAREZ MD [id number] [address] ,[facility] [address] [place] [address] 03/29/2020 09:43:30 03/29/2020 11:17:14 Gynecologic examination 45071033 Z01.419 Anxiety 25089703 F41.9 Menorrhagia 413039203 N9 2.0 [id number] AVIVA LYNNE, [address] [address]_[address]OU [place]_ED [place] [address],[facility] [address] [place] [address] 03/05/2021 15:01:23 03/06/2021 16:28:06 Contraception care management 725383887 Z30.9 [id number] MD EVELYN ABEBE004_SOU [address] ,[address] [address] 10/19/2021 17:01:20 10/25/2021 10:24:59 Gynecologic examination 45919896 Z01.419 HIV screening 079981109 Z11.4 Syphilis test finding 40 3932085 Z11.3 Viral screening 46489301 4 Z11.59 At high [place] of sexually transmitted infection 645485714 Z91.89 Contracept ion care management 507406806 Z30.9 [id number] DARIO ALMENDAREZ MD [id number] [address] [place] [address] 04/16/2023 12:27:14 04/16/2023 17:02:14 Contraception care management 475292682 Z30.9 Anxiety 06729302 F41.9 Pain of left breast 1010 564002 N64.4 Obesity 956739281 E66.9 [id number] DARIO AL[facility]ENDAREZ MD [id number] [facility] DANNY HENDRICKS [address] 02/25/2024 16:50:37 02/26/2024 15:59:06 Contraception care management 412704745 Z30.9 Anxiety 87858726 F41.9 Health Concerns Section Related Observation LastModified by Organization Detai ls LastModified Time None Recorded Concern Status LastModified by Organization Details LastModified Time None Recorded Advance Directives Directive None Recorded Payers Encounter Date Sequence Insurance Name Policy Number Policy Sowald Covered Member ID Oswald Member ID Guarantor Name 03/29/2020 1 [place] [id number] Jose Manuel Desouza [id number] Jessica M Deo 03/05/2021 1 [place] [id number] Jose Manuel Desouza [id number] Jessica Hinsonaghan 10/19/2021 1 [facility] [id number] Jessica Hinsonaghan [id number] Jessica Hinsonaghan 04/16/2023 1 [facility] [id number] Jessica Hinsonaghan [id number] Jessica Desouza 02/25/2024 1 [facility] [id number] Jessica Hinsonaghan [id number] Jessica Desouza Notes Date Note Type Note Provider Name and Address Organization Details Recorded Time 03/29/2020 text/html HPI Notes: Annua l Premenopausal ([facility]) Reported by patient. Patient Relationship To Practice: established patient Current Medical History: active medical problems stable Relevant Family History: no family history of breast cancer; no family history of ovarian cancer Menstrual History: Frequency of Menses: monthly; Duration of Flow: 7 days; Quantity of Flow: heavy; Clots: yes; Cramps: yes Contraceptive Method: nothing Sexually Active: Yes: same partner Health/Prevention: Exercise: yes Mammogram: not applicable Pap Smear +/- HPV Cotesting: due anxiety - stable on lexapro hx twin C/S 2012 [place] [address] [facility],[address], [place], [address], [facility] - [facility] 03/29/2020 10:40:10 03/05/2021 text/html HPI Notes: Pt is here for a Nexplanon insertion. AVIVA LYNNE, WHNP-BC [address] [facility],[address], [place], [address], [facility] - [facility] 03/05/2021 16:04:22 10/19/2021 text/html HPI Notes: Annua l Premenopausal ([facility]) Reported by patient. Patient Relationship To Practice: established patient Current Medical History: active medical problems stable Relevant Family History: no family history of breast cancer; no family history of ovarian cancer Menstrual History: Frequency of Menses: irregular; irregular and occ prolonged due to nexplanon Contraceptive Method: unsatisfied Sexually Active: Yes: new partner STI Screen: desires Health/Prevention: Exercise: yes; Mental Health Screen: normal Mammogram: not applicable Pap Smear +/- HPV Cotesting: up-to-date recent divorce and new partner ; co -parenting twins has nexplanon but not happy w/ on going irregular bleeding questions about permanent contraception anxiety - stable on lexapro hx twin C/S 2012 () [place] [address] [facility],[address], [place], [address], [facility] EDUC[facility] PARAPROFESSIONAL 10/24/2021 17:04:43 04/16/2023 text/html HPI Notes: Annua l Premenopausal ([facility]) Reported by patient. Patient Relationship To Practice: established patient Current Medical History: active medical problems stable Relevant Family History: no family history of breast cancer; no family history of ovarian cancer Menstrual History: Frequency of Menses: irregular; irregular and occ prolonged due to nexplanon Contraceptive Method: unsatisfied Sexually Active: Yes: new partner STI Screen: desires Health/Prevention: Exercise: yes; Mental Health Screen: normal Mammogram: not applicable Pap Smear +/- HPV Cotesting: up-to-date and now engaged ; co -parenting twins & 2 step daughters nexplanon 02/2021 ; report prolonged light bleeeding anxiety - stable on lexapro c/o intermittent left breast pain hx twin C/S 2012 () [place] [id number], [place], [address], [place] - [facility]ROFESSION[facility] 04/16/2023 16:55:29 02/25/2024 text/html HPI Notes: here for nexplanon removal (placed 3 yrs ago) would like to start [place] [address], [place], [address], [place] - [facility] 02/26/2024 14:54:56 OBGyn Episode Ob Episode Information Episode Created Date Number of Fetuses Patient Bloodtype Patient rh Status Prepregnancy Weight lbs Domestic Partner Domestic Partner Phone Father Name Foundry Molder Status 10/20/19 22 2 CLOSED Fetus Data First Name Last Name Admitted to NICU Weight (g) Sex Living Outcome Pediatric Complications Fetus ID Race Codes Race Delivery Type 2352.78 1704 F Prematur e 51333 2154.56 2 F Prematur e 59329 Abel Calculation Initial Abel Date Initial Exam Date Initial Exam Provider Initial Ultrasound Date Last Menstrual Period Date Ultra Sound Weeks Gestation 0 Eighteen To Twenty Week Abel Update Ultra Sound Date Fundal Height At Umbil Quickening Date Ultra Sound Latest Weeks Gestation Final Abel Confirmed By Final Abel Confirmed Date Final Abel Date Ultra Sound Latest Days Gestation 0 0 Menstrual History Last Menstrual Date Menses Monthly On Bcp Conception Prior Menses Frequency Hcg Plus Date Menarche Onset Age Delivery Information Delivery Date Delivery Type Labor Anesthesia Weeks Gestation Incision Type Labor Labor Length Hrs Delivered By Post Complications Tubal Sterilization Discharge Date Comments 3 [facility] [address] Dr[address] Almendarez; C/s For Twins , Monochori onic/diam niotic, Discharge Information Feeding Method Contraceptive Method Maternal HG B and HCT Levels
--- OUTSIDE RECORDS SUMMARY | 2024-03-22 11:12 | XMS_ITS | Clinical Summary ---
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 No ultrasound evidence of TTTS Estimated Date of Delivery Comme nts Yes 06/02/2013 Social History Tobacco Use Types Packs/Day Years Used Date Smoking Tobacco: Never Assessed Estimated Date of Delivery Comme nts Yes 06/02/2013 Sex and Gender Information Value Date Recorded Sex Assigned at Not on file Gender Identity Not on file Sexual Orientation Not on file Obstetrics History Para Term AB IAB SAB Ectopic Multiple Livin g Live Births 1 Date Outcome GA Total Labor Labor/2nd/3rd Weight Sex Type Anes PTL Julisa A1 A5 Name Clin Current Plan of Treatment Health Maintenance Due Date Last Done Comments Tdap 1996 Depression screening for age 12+ 1997 HIV for age 15-65 2000 BMI (ht and wt on same day) for age 18+ 2003 Hepatitis C screening for ag e 18-79 2003 Tetanus booster 2005 Pap test for age 21-65 2006 COVID-19 vaccine series ( - 2023- season) 2024 Influenza for age 9-49 01/25/2024 RSV vaccine for adults or (1 - 1-dose 75+ series) 2060 Pneumococcal series for age 6-64 Aged Out No longer eligible based on patient's age to complete this topic Care Teams Digital Asset Specialist Relationship Specialty Start Date End Date Pcp, No . PCP - General 05/07/13
--- OUTSIDE RECORDS SUMMARY | 2024-03-22 11:12 | XMS_ITS | Encounter Summary ---
Author Organization [facility] Address [address] [place] [address] Care Team Providers Care Contracts Advisor Name Role Phone Ivory Varela MD Primary Care Provide r Ivory Varela MD Unavailable Ivory Varela MD Unavailable Kisha Gustafson PA-C Primary Care Provi nelly Kisha Gustafson PA-C Unavailable [phone] Hanna Stone Ra, APRN VP RHEUMATOLOGY Unavailable + [phone] Brock Segovia DPM Unavailable [phone] Hanna Stone Ra, APRN VP RHEUMATOLOGY Primary Care Provid er Hanna Stone Ra, APRN VP RHEUMATOLOGY Unavailable + [phone] Reason for Visit * Reason Onset Date Comments Procedure 11/28/2017 LESI Encounter Details Date Type Department Care Team (Late st Contact Info) Description 11/28/2017 [facility] [place] [id number] [facility] [address] [place] [address] [facility] Social History Tobacco Use Types Packs/Day Years Used Date Smoking Tobacco: Former Cigarettes Q uit: 05/26/2010 Smokeless Tobacco: Never Alcohol Use Standard Drinks/Week Comments Yes 0 (1 standard drink = 0.6 oz pur e alcohol) occassionally Comments No Sex and Gender Information Value Date Recorded Sex Assigned at Not on file 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 Tata Ordonez Vision Impaired Teacher [facility] documented in this encounter Plan of Treatment Not on file documented as of this encounter Visit Diagnoses Not on filedocumented in this encounter Care Teams Contracts Advisor Relationship Specialty Start Date End Date Ivory Varela MD PCP - General Pediatrics 11/02/09 05/24/19 Ivory Varela MD [address] [place] [address] PCP - Assigned PCP 07/08/16 07/28/18 Kisha Gustafson PA-C [address] [place] [address] PCP - General Physician Sap Technical Architect 05/25/19 09/20/20 Hanna Stone Ra, HOSPITAL ADMISSIONS CLERK VP RHEUMATOLOGY [address] [place] [address] PCP - General Family Practice 09/21/20 Ivory Varela MD [address] [place] [address] Assigned PCP 07/08/16 05/29/19 Kisha Gustafson PA-C [address] [place] [address] Assigned PCP 05/30/19 12/04/19 Hanna Stone Ra, APRN VP RHEUMATOLOGY [address] [place] [address] Assigned PCP 12/05/19 05/10/22 Brock Segovia DPM [address] [facility] [address] [place] [address] Assigned Musculoskeletal Provider 03/17/20 09/02/20 Hanna Stone Ra, APRN VP RHEUMATOLOGY [address] [address] Assigned PCP 07/20/22 11/15/22 documented as of this encounter
--- OUTSIDE RECORDS SUMMARY | 2024-03-22 11:13 | XMS_ITS | Continuity of Care Document ---
Author Organization DANNY Doll EMERGENCY MANAGEMENT SPECIALIST, [id number] Address [address] [facility] [address] [place] [address] Assessment No assessment recorded. Plan of Treatment Reminders Order Date Submit Date Provider Last Modified By Organization Details Last Modified Time Details Appointments None recorded. Lab None recorded. Referral None recorded. Procedures None recorded. Surgeries None recorded. Imaging None recorded. Medication Orders escitalopra m 20 mg tablet 2023 [facility] [id number] [employer], [address] [place], [address], 17:59:22 Loestrin 1.5/30 (21) 1.5 mg-30 mcg tablet 2023 [facility] [id number] [employer], [address], [place], [address], 4 17:59:24 Patient TargetsNo targets recorded. Patient InstructionsNo instructions recorded. Reason for Referral None Reported. Problems No Known Problems Procedures Surgical History Date Name Laterality Status Provider Name and Address Organization Details Recorded Time 02/18/20 34 Date of Last Mammogram completed Dayan DELGADO - [facility] EMERG[facility] MANAGEMENT SPECIALIST 02/25/2024 17:09:29 02/25/20 24 Nexplanon / Implanon Removal Procedure Note ([facility]) [place] [address] [facility],[address], [place], [address], [facility] - [facility]GENCY MANAGEMENT SPECIALIST 02/26/2024 14:53:26 10/20/19 22 Date of Last Pap Smear completed Tracy Brown [place] - [facility]GENC[facility] MANAGEMENT SPECIALIST 10/26/2021 16:58:48 03/05/20 21 Nexplanon Insertion ([facility]) completed RICHARD CARDENAS- [address] [facility],[address], [place], [address], [place] - [facility] MANAGEMENT SPECIALIST 03/05/2021 16:02:08 03/05/20 21 insertion of etonogestrel radiopaque contraceptive implant completed Gauri Harry [place] - [facility] MANAG[facility] SPECIALIST 10/19/2021 08:34:37 section completed Not Available [facility] 01/03/2020 01:06:02 Removal of adenoids completed Not Available [facility] 01/03/2020 01:06:02 colposcopy of cervix completed Not Available [facility] 01/03/2020 01:06:02 rhinoplasty NEC completed Not Available [facility] 01/03/2020 01:06:02 Imaging Results None recorded. Procedure Notes None recorded. Medical Equipment None [...] Not Available No t Available Loestrin Fe 1.5/30 (28-Day) 1.5 mg-30 mcg (21)/75 mg (7) [...] Not Available Not Available No t Available .10/22 (21) 1.5 mg-30 mcg tablet TAKE 1 [...] Available Not Available Not Available Afluria Qd (36 mos up)(PF)60 mcg (15 mcg x4)/0.5 mL IM syringe 03/29 completed Not Available Not Available Not Available Vitals Date Recorded Body height Body mass index (BMI) Body weight Systolic blood pressure Diastolic blood pressure Provider Name and Address Organization Details Last Updated DateTime 02/25/2024 165.1 cm 39.8 kg/m2 272910.5 8 g 120 mm[Hg] 84 mm[Hg] Dayan Doll EMERGENCY MANAGEMENT SPECIALIST 17:09:08 Social History Question Answer Notes LastModified by Organizat ion Details LastModified Time Tobacco Smoking Status Former Smoker Former *Qty: 1 ppw DANNY Pinon EMERGENCY MANAGEMENT SPECIALIST 10/19/2021 08:33:34 What Is Your Level Of [...] split virus, trivalent, preservative 02/25/2013 completed Dayan [place] Luis Miguel Doll EMERGENCY MANAGEMENT SPECIALIST 04/16/2023 12:43:17 COVID-19, mRNA, LNP-S, PF, 100 mcg/0.5mL dose or 50 mcg/0.25mL dose 08/10/2020 completed Dayan marsh [place] Luis Miguel [facility] EMERGENCY MANAGEMENT SPECIALIST 04/16/2023 12:43:17 COVID-19, mRNA, LNP-S, PF, 100 mcg/0.5mL dose or 50 mcg/0.25mL dose 09/07/2020 completed Dayan Mohamed null, [place] - [facility] MANA[facility] SPECIALIST 04/16/2023 12:43:17 COVID-19, mRNA, LNP-S, PF, 30 mcg/0.3 mL dose 04/20/2021 completed Dayan Moh[place] [facility] SPECIALIST 04/16/2023 12:43:17 Tdap 12/21/2010 completed Dayan [place] [facility] SPECIALIST 04/16/2023 12:43:17 Influenza, split virus, trivalent, preservative 04/10/2011 completed Day[place] [facility] SPECIALIST 04/16/2023 12:43:17 Influenza, split virus, trivalent, PF 02/15/2015 completed [place] [facility] SPECIALIST 04/16/2023 12:43:17 Influenza, split virus, trivalent, PF 03/11/2017 completed Day[place] [facility] SPECIALIST 04/16/2023 12:43:17 Influenza, split virus, quadrivalent, PF 02/05/2020 completed [place] [facility] SPECIALIST 04/16/2023 12:43:17 Influenza, split virus, quadrivalent, PF 02/28/2018 completed Day[place] [facility] SPECIALIST 04/16/2023 12:43:17 Influenza, split virus, quadrivalent, PF 03/20/2016 completed [place] [facility] SPECIALIST 04/16/2023 12:43:17 Influenza, split virus, quadrivalent, PF 03/28/2019 completed [place] [facility] SPECIALIST 04/16/2023 12:43:17 Influenza, split virus, quadrivalent, PF 04/20/2021 completed [place] [facility] SPECIALIST 04/16/2023 12:43:17 Tdap 02/16/2024 completed Dayan [place] null[place] [facility]GEMENT SPECIALIST 02/25/2024 17:05:10 Past Encounters Encounter ID Performer Location Encounter Start Date Encounter Closed Date Diagnosis/Indication Diagnosis SNOMED-CT Code Diagnosis ICD10 Code [id number] DARIO ALMENDAREZ MD [id number] [address] [facility] [address] [place] [address] 02/25/2024 16:50:37 02/26/2024 15:59:06 Contraception care management 304423143 Z30.9 Anxiety 21262194 F41.9 Health Concerns Section Related Observation LastModified by Organization Detai ls LastModified Time None Recorded Concern Status LastModified by Organization Details LastModified Time None Recorded Payers Encounter Date Sequence Insurance Name Policy Number Policy Oswald Covered Member ID Oswald Member ID Guarantor Name 02/25/2024 1 [facility] [id number] Jessica Desouza [id number] Jessica Desouza Notes Date Note Type Note Provider Name and Address Organization Details Recorded Time 02/25/2024 text/html HPI Notes: here for nexplanon removal (placed 3 yrs ago) would like to start [place] [address] [facility],[address], [place], [address], [facility] - [facility]ERGENCY MANAGEMENT SPECIALIST 02/26/2024 14:54:56 OBGyn Episode No OBEpisode recorded.
--- NOTE | 2024-04-06 12:41 | W.PM.SLEEP ---
Sleep Study Details Details Interpreting Provider: Gurpreet Date of Sleep Study: 03/22/24 Sleep Study Details: STUDY TYPE:? Home unattended ? BMI:? 39.2 ORDERING PROVIDER:Tavo Elizabeth INDICATION:? Concerned about sleep apnea ? SLEEP SUMMARY:? 376 minutes monitored RESPIRATORY SUMMARY:? AHI 77.1 Low oxygen 72 10.3% of study oxygen less than 90% No snoring PERIODIC LIMB MOVEMENTS OF SLEEP:? Not record CARDIAC:? Range 55-111, mean 76.6 beats per minute IMPRESSION:? Severe obstructive sleep apnea with significant desaturation RECOMMENDATION: Treatment options include weight loss and CPAP. Would recommend AutoSet CPAP pressure 4-17.
== END 2024-03-22 11:10 | disposition home or self-care (01) ==
PROVIDERS: PCP Physician Assistant Medical; Visit Provider Physician Assistant Medical
DX: G47.33 Obstructive sleep apnea (adult) (pediatric) (principal)
CPT/HCPCS: 95806

== ENCOUNTER 2025-02-04 09:47 | Outpatient (CLI) | payer OTHER, SELFPAY | END 2025-02-04 09:48 | disposition home or self-care (01) | LOC: NFLDREF 02-08 11:23 | PROVIDERS: PCP Physician Assistant Medical; Referring Provider Physician Assistant Medical; Visit Provider Physician Assistant Medical | DX: R79.89 Other specified abnormal findings of blood chemistry (principal); R79.0 Abnormal level of blood mineral; E66.01 Morbid (severe) obesity due to excess calories; N92.0 Excessive and frequent menstruation with regular cycle; Z13.6 Encounter for screening for cardiovascular disorders | CPT/HCPCS: 80053; 80061; 82306; 82728; 84443 ==